=== PATIENT | male | born 1980 | race Caucasian/White ===

== ENCOUNTER 2017-01-15 05:08 | Inpatient (IN) | payer BC ==
[~2017-01-15] VITALS: Ht 188 cm; Wt 159.2 kg
[2017-01-15 09:10] VITALS: BP 119/69
[2017-01-15] MEDS ORDERED: HALOPERIDOL 5 MG TABLET PO PRN (09:15)
[2017-01-15] MEDS ORDERED: ZOLPIDEM TARTRATE 10 MG TABLET PO PRN (09:15)
[2017-01-15 10:34] VITALS: BP 122/69
[2017-01-15] MEDS ORDERED: PNEUMOCOCCAL VACCINE POLYVALENT 0.5 ML VIAL [PPSV23] IM ONE (11:00)
[2017-01-15] MEDS ORDERED: NAPR1TAB28 PO (14:44)
[2017-01-15] MEDS ORDERED: ASCO500 PO (14:44)
[2017-01-15] MEDS ORDERED: LISI-660 PO (14:44)
[2017-01-15] MEDS ORDERED: GUAI120017 PO (14:44)
[2017-01-15] MEDS ORDERED: MULT-1203 PO (14:44)
[2017-01-15] MEDS ORDERED: QUET100T PO (14:44)
[2017-01-15] MEDS ORDERED: HYDR-3110 PO (14:44)
[2017-01-15] MEDS ORDERED: CYCL10 PO (14:44)
[2017-01-15] MEDS ORDERED: OXCA300T PO (14:44)
[2017-01-15] MEDS ORDERED: ALLO300 PO (14:44)
[2017-01-15] MEDS ORDERED: SIME125C PO (14:44)
[2017-01-15] MEDS ORDERED: GLUC-236 PO (14:44)
[2017-01-15] MEDS ORDERED: PROP20 PO (14:44)
[2017-01-15] MEDS ORDERED: CLON.5 PO (14:44)
[2017-01-15] MEDS ORDERED: GABA-533 PO (14:44)
[2017-01-15] MEDS ORDERED: LITH300CRT PO (14:44)
[2017-01-15] MEDS ORDERED: OMEG-12 PO (14:44)
[2017-01-15 16:08] VITALS: BP 115/70
[2017-01-15] MEDS: LORazepam 2 MG TABLET PO PRN (17:49)
[2017-01-16 00:30] VITALS: BP 120/64
[2017-01-16 08:15] VITALS: BP 128/69
[2017-01-16 08:35] LABS: BASOPHILS # (AUTO) 0.06 K/uL (0.00-0.20); BASOPHILS % (AUTO) 0.7 % (0.0-2.0); EOSINOPHILS % (AUTO) 4.15 % (1.0-6.0); HEMATOCRIT 44.4 % (41-53); HEMOGLOBIN 14.8 g/dL (13.5-17.5); LYMPHOCYTES # (AUTO) 2.4 K/uL (1.0-4.8); LYMPHOCYTES % (AUTO) 25.1 % (22.0-44.0); MEAN CORPUSCULAR HEMOGLOBIN 30.9 pg (26.0-34.0); MEAN CORPUSCULAR HGB CONC 33.2 G/dL (31.0-37.0); MEAN CORPUSCULAR VOLUME 93 fL (80-100); MONOCYTES # (AUTO) 0.8 K/uL (0.1-1.0); MONOCYTES % (AUTO) 8.7 % (2.0-9.0); NEUTROPHILS # (AUTO) 5.9 K/uL (1.8-7.7); NEUTROPHILS % (AUTO) 61.4 % (40.0-70.0); PLATELET COUNT (AUTO) 238 K/uL (150-450); RED BLOOD CELL COUNT(AUTO) 4.78 MIL/uL (4.50-5.90); RED CELL DISTRIBUTION WIDTH 14.3 % (11.5-14.5); WHITE BLOOD COUNT (AUTO) 9.6 K/uL (4.5-11.0)
[2017-01-16 08:39] LABS: ALANINE AMINOTRANSFERASE 48 U/L (12-78); ALBUMIN 3.6 g/dL (3.4-5.0); ANION GAP 9 mmol/L (8-16); ASPARTATE AMINOTRANSFERASE 30 U/L (15-37); BILIRUBIN,TOTAL 0.5 mg/dL (0.1-1.0); CALCIUM, TOTAL 9.3 mg/dL (8.8-10.5); CARBON DIOXIDE 27 mmol/L (22-29); CHLORIDE 103 mmol/L (98-107); CREATININE 1.11 mg/dL (0.60-1.30); GLOMERULAR FILTR. RATE CALC > 60 mL/min (>60); POTASSIUM 4.1 mmol/L (3.5-5.1); SODIUM SERUM 139 mmol/L (136-145); THYROID STIMULATING HORMONE 3.35 uIU/mL (0.36-3.74); TOTAL PROTEIN, SERUM 6.8 g/dL (6.4-8.2); UREA NITROGEN, BLOOD 16 mg/dL (7-18)
[2017-01-16] MEDS ORDERED: QUEtiapine FUMARATE 25 MG TABLET PO PRN (13:45)
[2017-01-16] MEDS ORDERED: GABAPENTIN 300 MG CAPSULE PO PRN (13:45)
[2017-01-16] MEDS ORDERED: ClonazePAM 0.5 MG TABLET PO PRN (13:45)
[2017-01-16] MEDS: OXCARBAZEPINE 300 MG/5 ML PO SCH (16:27)
[2017-01-16] MEDS: PROPRANOLOL HCL 20 MG TABLET PO SCH (16:27)
[2017-01-16] MEDS ORDERED: IBUPROFEN 600 MG TABLET PO PRN (17:15)
[2017-01-16] MEDS ORDERED: ACETAMINOPHEN 325 MG TABLET PO PRN (17:15)
[2017-01-16 18:14] VITALS: BP 129/78
[2017-01-17 00:13] VITALS: BP 119/78
[2017-01-17] MEDS: LORazepam 2 MG TABLET PO PRN (00:20)
[2017-01-17 08:16] VITALS: BP 133/75
[2017-01-17 08:57] LABS: CREATINE KINASE MB 2.7 ng/mL (0-5); CREATINE KINASE, TOTAL 243 U/L (39-308); URIC ACID 6.5 mg/dL (2.6-7.2)
[2017-01-17] MEDS: OXCARBAZEPINE 300 MG/5 ML PO SCH (09:00)
[2017-01-17] MEDS ORDERED: NAPROXEN 250 MG TABLET PO SCH (09:00)
[2017-01-17] MEDS: PROPRANOLOL HCL 20 MG TABLET PO SCH ×2 (09:10→12:20)
[2017-01-17] MEDS ORDERED: ALLOPURINOL 300 MG TABLET PO SCH (10:45)
[2017-01-17] MEDS ORDERED: NAPR250T2 PO (11:35)
[2017-01-17 12:19] VITALS: BP 129/76
[2017-01-18 08:07] LABS: HEPATITIS Bs ANTIGEN SCREEN P Negative (Negative); HEPATITIS C AB SCREEN <0.1 s/co ratio (0.0-0.9)
== END 2017-01-17 15:10 | disposition home or self-care (01) | DRG 885 ==
LOC: EDSTATUS 05:11 → B2X 09:33
PROVIDERS: ADMIT Psychiatry & Neurology Child & Adolescent Psychiatry; ATTEND Psychiatry & Neurology Child & Adolescent Psychiatry
DX: F25.0 Schizoaffective disorder, bipolar type (principal); I10 Essential (primary) hypertension; E78.5 Hyperlipidemia, unspecified; M10.9 Gout, unspecified; S60.229A Contusion of unspecified hand, initial encounter; X58.XXXA Exposure to other specified factors, initial encounter; Y99.8 Other external cause status; Y92.89 Other specified places as the place of occurrence of the external cause; Y93.89 Activity, other specified; Z91.048 Other nonmedicinal substance allergy status
CPT/HCPCS: 80074; 82306; 82607; 82746; 83036; 84439; 84443; 84550; 90471